=== PATIENT | female | born 1985 | race Caucasian/White ===

== ENCOUNTER 2020-03-04 11:45 | Emergency (ER) | payer OTHER ==
[2020-03-04 11:53] VITALS: BP 125/61; PULSE 83; TEMP 98; BMI 33.4
--- NOTE | 2020-03-04 12:04 | PDOC ---
History of Present Illness - General Chief Complaint: Facial Droop Stated Complaint: FACIAL NUMBING(LT. SIDE) Time Seen by Provider: 03/04/20 12:03 - History of Present Illness Initial Comments: 03/04/20 13:17 34 yo F w/ no relevant PMHx presents w/ L facial droop since yesterday around 1400. 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 It has not gotten worse or better, is not ameliorated or exacerbated by anything. It is not painful. No vision changes or loss. No hearing changes or tinnitus. No rashes. No h/o strokes, blood clots, or trauma. No recent illness, fevers, cough, n/v/d, travel, hikes, or exposure to dogs. Past History - Medical History Allergies/Adverse Reactions: Allergies Allergy/AdvReac Type Severity Reaction Status Date / Time No Known Drug Allergies Allergy Verified 03/04/20 11:49 Home Medications: Ambulatory Orders Acetaminophen [Tylenol .Regular Strength -] 650 mg PO Q3H PRN #0 tablet 02/20/15 Benzocaine [Americaine 20% [place] -] 1 spray TP PRN PRN #0 bottle 02/20/15 Ferrous Sulfate [Feosol] 325 mg PO BIDWM #60 ud 02/20/15 Ibuprofen [Motrin -] 200 mg PO Q4H PRN #0 tablet 02/20/15 Vitamins (Sjr) - 1 tab PO DAILY #30 tablet 02/20/15 Sennosides/Docusate Sodium [Pericolace -] 2 each PO HS PRN #30 tablet 02/20/15 Witch Shari 50% (Tucks) [Tucks Pads -] 1 pad TP PRN PRN #0 pad 02/20/15 Ibuprofen [Motrin -] 400 mg PO QID #28 tablet 02/21/15 Acyclovir [Zovirax -] 800 mg PO Q4H 7 Days #34 tablet 03/04/20 Methylprednisolone [Medrol Dose Samuel] 4 mg PO ASDIR #21 tablet 03/04/20 Peg 400/Hypromellose/Glycerin [Eye Drop Tears] 15 ml OP PRN #100 drops 03/04/20 Prednisone [Prednisone 50 MG TABLETS] 60 mg PO DAILY #4 tablet 03/04/20 Asthma: No Cancer: No Cardiac Disorders: No Diabetes: No HTN: No Seizures: No Thyroid Disease: No - Reproductive History Is Patient Now?: No - Psycho-Social/Smoking History Smoking History: Never smoked Have you smoked in the past 12 months: No - Substance Abuse Hx (Audit-C & DAST Scrn) How often the patient has a drink containing alcohol: Monthly or less Score: In Men: 4 or > Positive; In Women: 3 or > Positive: 1 Screen Result (Pos requires Nsg. Audit-10AR): Negative Review of Systems - Review of Systems Able to Perform ROS?: Yes (used jacquard fixer) Is the patient limited Uzbek proficient: Yes Constitutional: No: Chills, Diaphoresis, Fever, Malaise, Night Sweats, Weakness HEENTM: No: Eye Pain, Blurred Vision, Tearing, Recent change in vision, Double Vision, Ear Pain, Ear Discharge, Nose Pain, Tinnitus, Nose Bleeding, Hearing Loss, Throat Pain Respiratory: No: Cough Cardiac (ROS): No: Chest Pain, Irregular Heart Rate, Lightheadedness, Palpitations, Syncope ABD/GI: No: Abdominal Distended, Diarrhea, Nausea, Vomiting : No: Burning, Dysuria, Hematuria Musculoskeletal: Yes: Muscle Weakness (of the left eyebrow, mouth, and cheek). No: Back Pain Integumentary: No: Rash Neurological: Yes: Numbness, Weakness. No: Headache, Pre-Existing Deficit, Seizure, Tingling Endocrine: No: Symptoms Reported Hematologic/Lymphatic: No: Symptoms Reported All Other Systems: Reviewed and Negative *Physical Exam - Vital Signs Last Vital Signs Temp Pulse Resp BP Pulse Ox 98.0 F 83 18 125/61 99 03/04/20 11:50 03/04/20 11:50 03/04/20 11:50 03/04/20 11:50 03/04/20 11:50 - Physical Exam General Appearance: Yes: Nourished, Appropriately Dressed. No: Apparent Dis tress HEENT: positive: Normal Voice, Pharynx Normal, Hearing Grossly Normal. negative: EOMI (L sided MR palsy appreciated during test for accomodation), Symmetrical (L facial droop, not forehead sparing), Photophobia, Tonsillar Exudate, Rhinorrhea, TM Bulging Neck: positive: Trachea midline, Supple. negative: Tender, Decreased range of motion Respiratory/Chest: positive: Lungs Clear, Normal Breath Sounds. negative: Chest Tender Cardiovascular: positive: Regular Rhythm, Regular Rate Musculoskeletal: positive: Normal Inspection. negative: CVA Tenderness Extremity: positive: Normal Capillary Refill, Normal Inspection Integumentary: positive: Normal Color, Dry, Warm. negative: Rash Neurologic: positive: Fully Oriented, Alert, Normal Mood/Affect, Normal Response, Motor Strength 5/5 (in extremities), Abnormal Cranial NS (7, on Left), Facial Droop, Numbness, Finger to Nose (intact), Other (normal gait, no dysdiadochokinesia). 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 DDx - CVA/TIA, VZV/shingles-mediated 7th nerve palsy, other cause of 7th nerve palsy. 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 03/04/20 13:35 Will send steroids and acyclovir Discharge - Discharge Information Problems reviewed: Yes Clinical Impression/Diagnosis: Patel's palsy Condition: Stable Disposition: HOME - Admission No - Additional Discharge Information Prescriptions: Peg 400/Hypromellose/Glycerin [Eye Drop Tears] 15 ml OP PRN #100 drops Methylprednisolone [Medrol Dose Samuel] 4 mg PO ASDIR #21 tablet Prednisone [Prednisone 50 MG TABLETS] 60 mg PO DAILY #4 tablet Acyclovir [Zovirax -] 800 mg PO Q4H 7 Days #34 tablet - Follow up/Referral Referrals: [facility] [place] [facility] at [place] [Provider Group] Justino Castro MD [Staff Physician] - Prasad Sullivan MD [Staff Physician] - Kota Hughes MD [Staff Physician] - Isai Vinson MD [Staff Physician] - - Patient Discharge Instructions Patient Printed Discharge Instructions: DI for [place] Palsy, Prednisone, Methylprednisolone Additional Instructions: Viniste al ED con entumecimiento y debilidad en el lado zaira de tu esther. Te evaluamos y llegamos a la conclusion de que probablemente estas sufriendo de [place] Palsy. Te dimos medicinas para esto. Por favor, tomelo en orden y no perder ninguna dosis. Hoy en hari 03/04: april acyclovir a las 4pm, 8pm, y media noche. [place] 03/05: april acyclovir 800mg cada 4 horas, empezando cuando te despiertes. Haz esto hasta que termines el acyclovir. Tambien tome 3 pastillas de prednisone un vez, en la manana. Repita esto hasta la prednisona se haya ramiro. En raul 03/09: empieza el "medrol dose samuel" y tomese lo que se le indique. Por favor, llame al neurologo y al medico de ENT (Dr. Vinson) dentro de las 48 horas siguientes a mazariegos salida. Print Language: MOHAWK - Post Discharge Activity
[2020-03-04] MEDS ORDERED: predniSONE 20 MG TABLET (UD) PO ONE (12:58)
[2020-03-04] MEDS ORDERED: ACYCLOVIR 400 MG TABLET PO ONE (12:58)
[2020-03-04] MEDS ORDERED: predniSONE 20 MG TABLET (UD) ONE (13:03)
[2020-03-04] MEDS ORDERED: ACYCLOVIR 200 MG CAPSULE ONE (13:03)
--- NOTE | 2020-03-04 13:10 | PDOC ---
Documentation entered by Ava Santiago SCRIBE, acting as scribe for Adelaida Granados DO. Adelaida Granados DO: This documentation has been prepared by the Jack ortiz Xhesika, SCRIBE, under my direction and personally reviewed by me in its entirety. I confirm that the documentation accurately reflects all work, treatment, procedures, and medical decision making performed by me. Attending Attestation - Resident Resident Name: Cruz Jesus - ED Attending Attestation I have performed the following: I have examined & evaluated the patient, The case was reviewed & discussed with the resident, I agree w/resident's findings & plan, Exceptions are as noted - HPI HPI: 03/04/20 12:20 The patient is a 34 year old female with a significant PMH of who presents to the emergency department for L sided facial droop and numbness since 2PM yesterday. Pt denies any headache, dizziness, vision changes or ear pain. Pt denies chest pain, shortness of breath. Denies fever, chills, cough, nausea, vomiting, diarrhea and constipation. Denies dysuria, frequency, urgency and hematuria. Allergies: NKDA - Physicial Exam PE: 03/04/20 12:21 GENERAL: Awake, alert, and fully oriented, in no acute distress NECK: Normal ROM, supple, no lymphadenopathy, JVD, or masses LUNGS: Breath sounds equal, clear to auscultation bilaterally. No wheezes, and no crackles HEART: Regular rate and rhythm, normal S1 and S2, no murmurs, rubs or gallops ABDOMEN: Soft, nontender, normoactive bowel sounds. No guarding, no rebound. No masses EXTREMITIES: Normal range of motion, no edema. No clubbing or cyanosis. No cords, erythema, or tenderness NEUROLOGICAL: +L facial droop. +unable to close L eye. +unable to wrinkle L side of forehead. Cranial nerves II through XII grossly intact. SKIN: Warm, Dry, normal turgor, no rashes lesions noted - Medical Decision Making 03/04/20 13:06 a/p: 34yo female with L facial droop since yesterday -consistent with BELLS PALSY -unable to close L eye, unable to lift L eyebrow, L lower facial droop -no other neuro findings -no rashes, pets, tic bites -no vesicles visualized -will start steroids -acyclovi -will need neuro and ent follow up -ambulatory in the ER -[facility] [place] 03/04/20 14:25 upreg neg discussed meds and dosing in detail stable for dc to home Discharge - Discharge Information Problems reviewed: Yes Clinical Impression/Diagnosis: Patel's palsy Condition: Stable Disposition: HOME - Admission No - Additional Discharge Information Prescriptions: Peg 400/Hypromellose/Glycerin [Eye Drop Tears] 15 ml OP PRN #100 drops Methylprednisolone [Medrol Dose Samuel] 4 mg PO ASDIR #21 tablet Prednisone [Prednisone 50 MG TABLETS] 60 mg PO DAILY #4 tablet Acyclovir [Zovirax -] 800 mg PO Q4H 7 Days #34 tablet - Follow up/Referral Referrals: [facility] [place] Internal Med at [place] [Provider Group] Justino Castro MD [Staff Physician] - Prasad Sullivan MD [Staff Physician] - Kota Hughes MD [Staff Physician] - Isai Vinson MD [Staff Physician] - - Patient Discharge Instructions Patient Printed Discharge Instructions: DI for [place] Palsy, Prednisone, Methylprednisolone Additional Instructions: Viniste al ED con entumecimiento y debilidad en el lado zaira de tu esther. Te evaluamos y llegamos a la conclusion de que probablemente estas sufriendo de [place] Palsy. Te dimos medicinas para esto. Por favor, tomelo en orden y no perder ninguna dosis. Hoy en hari 03/04: april acyclovir a las 4pm, 8pm, y media noche. [place] 03/05: april acyclovir 800mg cada 4 horas, empezando cuando te despiertes. Haz esto hasta que termines el acyclovir. Tambien tome 3 pastillas de prednisone un vez, en la manana. Repita esto hasta la prednisona se haya ramiro. En raul 03/09: empieza el "medrol dose samuel" y tomese lo que se le indique. Print Language: SAMOAN - Post Discharge Activity
== END 2020-03-04 14:27 | disposition home or self-care (01) ==
LOC: JER 11:45
DX: G51.0 Bell's palsy (principal)
CPT/HCPCS: 84703; 99283-25